=== PATIENT | male | born 1965 | race Caucasian/White ===

== ENCOUNTER 2018-06-09 15:21 | Emergency (ER) | payer BC ==
[~2018-06-09] VITALS: Ht 170.2 cm; Wt 74.2 kg
[2018-06-09 15:34] VITALS: BP 149/83; PULSE 72; RESP 18; Ht 170.2 cm; Wt 74.2 kg
[2018-06-09] MEDS ORDERED: TRIF7.5D4 BOTH EYES (16:27)
[2018-06-09] MEDS ORDERED: PRED5DRO20 LEFT EYE (16:27)
[2018-06-09] MEDS ORDERED: OFLO5DRO46 LEFT EYE (16:30)
--- NOTE | 2018-06-12 09:20 | ERD ---
ER Documentation Chief Complaint Chief Complaint herpes outbreak left eye, chronic, needs medication HPI Patient encounter occured 06/09/18 52-year-old male with no past medical or surgical history who presents with left eye redness, swelling and discharge. States episode is very similar to her previous herpetic infection he had in past. Was not on his acyclovir treatment over the past couple of weeks and recently restarted. Denies any blurry vision or other rash. No reported purulent drainage from eye. Reports feels a sensation of draining into his sinuses. At time of evaluation patient requesting medications he was on previously including Pred forte and Viroptic. ROS All systems reviewed and are negative except as per history of present illness. Medications Home Meds Active Scripts Ofloxacin* (Ocuflox*) 0.3%-5 Ml Ophth Drops, 1 DROP LEFT EYE QID for 7 Days, BOTTLE Prov:AYAN VALERO-C 06/09/18 Prednisolone Acetate* (Pred Forte*) 5 Ml Susp, 1 DROP LEFT EYE QID for 7 Days, EA Prov:AYAN VALERO-C 06/09/18 Trifluridine* (Viroptic*) 7.5 Ml Drops, 1 DROP BOTH EYES Q4H for 7 Days, #1 EA 1 drop in each eye q2h while awake until re-epithelization, then 1 drop q4h while awake x 7 days. Prov:AYAN VALERO PA-C 06/09/18 Allergies Allergies: Coded Allergies: No Known Allergy (Unverified , 06/09/18) PMhx/Soc History of Surgery: Yes (TUMMY TUCK) Anesthesia Reaction: No Hx Miscellaneous Medical Probl: Yes (LEFT EYE HERPES) Hx Alcohol Use: Yes (OCCASSIONAL) Hx Substance Use: No Hx Tobacco Use: No Smoking Status: Never smoker Physical Exam Vitals Vital Signs Date Temp Pulse Resp B/P (MAP) Pulse Ox O2 O2 Flow FiO2 Time Delivery Rate 06/09/18 97.9 72 18 149/83 99 15:34 (105) Physical Exam I have reviewed the triage vital signs. Const: Well nourished, well developed, appears stated age Eyes: PERRL, no conjunctival injection HENT: NCAT, Neck supple without meningismus, L eye with mild erythema, no prominent swelling, clear drainage CV: RRR, Warm, well-perfused extremities RESP: CTAB, Unlabored respiratory effort GI: soft, non-tender, non-distended, no masses MSK: No gross deformities appreciated Skin: Warm, dry. No rashes Neuro: grossly non focal Psych: Appropriate mood and affect. Procedures/MDM 52-year-old male presents with left eye redness and swelling. Patient reports that he thinks this might be the beginning of her herpetic outbreak to left eye given he has history of such. Patient had no concerning symptoms such as blurry vision or any signs or symptoms of systemic infection. Explained to patient that he may have was more consistent with a bacterial eye infection. I would like to treat him for viral infection and prescribed ofloxacin just in case there is a bacterial etiology to his symptoms and he does not improve on antiviral medications. Plan: Pred forte and viroptic Ofloxacin (to take if no improvement on antivirals) DISPOSITION PLAN: We discussed follow up with the patient's primary care doctor within 24 to 48 hours. Patient counseled regarding my diagnostic impression and care plan. Prior to discharge all questions answered. Pt agrees with treatment plan and understands strict return precautions. Precautionary instructions provided including instructions to return to the ER if not improving or for any worsening or changing symptoms or concerns. Departure Diagnosis: Primary Impression: Conjunctivitis Condition: Stable Patient Instructions: Conjunctivitis Caused by Infection, Herpes: Treatment with Medication Referrals: [facility] YOU HAVE RECEIVED A MEDICAL SCREENING EXAM AND THE RESULTS INDICATE THAT YOU DO NOT HAVE A CONDITION THAT REQUIRES URGENT TREATMENT IN THE EMERGENCY DEPARTMENT. FURTHER EVALUATION AND TREATMENT OF YOUR CONDITION CAN WAIT UNTIL YOU ARE SEEN IN YOUR DOCTORS OFFICE WITHIN THE NEXT 1-2 DAYS. IT IS YOUR RESPONSIBILITY TO MAKE AN APPOINTMENT FOR FOLOW-UP CARE. IF YOU HAVE A PRIMARY DOCTOR --you should call your primary doctor and schedule an appointment IF YOU DO NOT HAVE A PRIMARY DOCTOR YOU CAN CALL OUR PHYSICIAN REFERRAL HOTLINE AT IF YOU CAN NOT AFFORD TO SEE A PHYSICIAN YOU CAN CHOSE FROM THE FOLLOWING COM [facility] [address] [facility] [address] [facility] [address] [facility] [address] [facility] [address] [facility]. [facility] [address] Additional Instructions: Call your primary care doctor TOMORROW for an appointment during the next 2-3 days.See the doctor sooner or return here if your condition worsens before your appointment time. AYAN VALERO PA-C Jun 12, 2018 09:20
== END 2018-06-09 16:40 | disposition home or self-care (01) ==
LOC: FTE 15:21
DX: H10.9 Unspecified conjunctivitis (principal)
CPT/HCPCS: 99283